=== PATIENT | female | born 1975 | race Two or more races ===

== ENCOUNTER 2020-09-02 16:15 | Inpatient (IN) | payer OTHER ==
[~2020-09-02] VITALS: Ht 165.1 cm; Wt 59.0 kg
[2020-09-12] MEDS ORDERED: PEPCID AC20 MG PO (16:33)
[2020-09-12] MEDS ORDERED: MEDROLPACK PO (16:33)
[2020-09-12] MEDS ORDERED: INTESTINEX680 M1 PO (16:33)
== END 2020-09-12 14:20 | disposition home or self-care (01) | DRG 392 ==
LOC: ER 16:15 → SURG 09-03 01:43
PROVIDERS: ADMIT Surgery; ATTEND Surgery
PROC: BW2110Z Computerized Tomography (CT Scan) of Abdomen and Pelvis using Low Osmolar Contrast, Unenhanced and Enhanced (ICD-10-PCS; 2020-09-02)
PROC: 02HV33Z Insertion of Infusion Device into Superior Vena Cava, Percutaneous Approach (ICD-10-PCS; principal; 2020-09-03)
PROC: BW2110Z Computerized Tomography (CT Scan) of Abdomen and Pelvis using Low Osmolar Contrast, Unenhanced and Enhanced (ICD-10-PCS; 2020-09-07)
DX: A09 Infectious gastroenteritis and colitis, unspecified (principal); K50.90 Crohn's disease, unspecified, without complications; Z20.822 Contact with and (suspected) exposure to COVID-19

== ENCOUNTER 2020-09-16 20:44 | Inpatient (IN) | payer OTHER ==
[~2020-09-16] VITALS: Ht 165.1 cm; Wt 59.0 kg
[~2020-09-16 20:44] MED LIST: INTESTINEX680 M1 PO; MEDROLPACK PO; PEPCID AC20 MG PO
== END 2020-10-02 13:40 | disposition home or self-care (01) | DRG 602 ==
LOC: ER 20:44 → SURH 09-17 15:15 → SEC-K 09-17 15:15 → SURH 09-17 20:22
PROVIDERS: ADMIT Surgery; ATTEND Surgery
PROC: 0W9F3ZZ Drainage of Abdominal Wall, Percutaneous Approach (ICD-10-PCS; principal; 2020-09-18)
PROC: BW21YZZ Computerized Tomography (CT Scan) of Abdomen and Pelvis using Other Contrast (ICD-10-PCS; 2020-09-26)
DX: L02.211 Cutaneous abscess of abdominal wall (principal); K35.33 Acute appendicitis with perforation, localized peritonitis, and gangrene, with abscess; K52.89 Other specified noninfective gastroenteritis and colitis; B96.29 Other Escherichia coli [E. coli] as the cause of diseases classified elsewhere; Z20.822 Contact with and (suspected) exposure to COVID-19